=== PATIENT | female | born 1970 | race Caucasian/White ===

== ENCOUNTER 2017-10-01 08:03 | Day surgery (SDC) | payer BC ==
[~2017-10-01 08:03] MED LIST: LACTATED RINGER'S 1,000 ML IV*
[2017-10-01 09:02] LABS: ADD MAN DIFF? NO
[2017-10-01 09:07] LABS: BASOPHILS % 0.4 % (0.0-2.0); EOSINOPHILS # 0.2 10^3/ul (0.0-0.5); EOSINOPHILS % 1.5 % (0.0-7.0); HEMOGLOBIN 11.4 g/dl (12.0-16.0); LYMPHOCYTES # 2.1 10^3/ul (0.8-2.9); LYMPHOCYTES % 21.3 % (15.0-51.0); MEAN CORPUSCULAR HGB CONC 32.6 g/dl (32.0-37.0); MEAN PLATELET VOLUME 9.9 fl (7.4-10.4); MONOCYTE # 0.4 10^3/ul (0.3-0.9); MONOCYTES % 4.5 % (0.0-11.0); NEUTROPHIL # 7.1 10^3/ul (1.6-7.5); NEUTROPHILS % 71.9 % (39.0-77.0); PLATELET COUNT 306 10^3/UL (140-415); RED BLOOD COUNT 4.07 10^6/ul (4.20-5.40); RED CELL DISTRIBUTION WIDTH 12.8 % (11.5-14.5)
[2017-10-01 09:07] LABS: WHITE BLOOD COUNT 9.8 10^3/ul (4.8-10.8)
[2017-10-01] MEDS ORDERED: FENTAnyl 50 MCG/ML VIAL (10:17)
[2017-10-01] MEDS ORDERED: MIDAZOLAM 1 MG/ML 2 ML INJ (10:17)
[2017-10-01] MEDS ORDERED: CEFAZOLIN 1 GM INJ (10:17)
[2017-10-01] MEDS ORDERED: PROPOFOL 20 ML (10:17)
[2017-10-01] MEDS ORDERED: ONDANSETRON 4 MG INJ (10:33)
[2017-10-01] MEDS ORDERED: KETOROLAC 30 MG INJ (10:33)
[2017-10-01] MEDS ORDERED: METOCLOPRAMIDE 10 MG INJ (10:33)
[2017-10-01] MEDS ORDERED: HYDROmorphONE 1 MG/5 ML IV SYRINGE IV ×3 (11:00)
[2017-10-01] MEDS ORDERED: DIPHENHYDRAMINE 50 MG INJ IV (11:00)
[2017-10-01] MEDS ORDERED: OXYCODONE/ACETAMINOPHEN (5/325) TAB PO ×2 (11:00)
[2017-10-01] MEDS ORDERED: ONDANSETRON 4 MG INJ IV (11:00)
[2017-10-01] MEDS ORDERED: MEPERIDINE 25 MG INJ IV (11:00)
== END 2017-10-01 12:50 | disposition home or self-care (01) ==
LOC: SDS 08:03
DX: N84.0 Polyp of corpus uteri (principal); N93.8 Other specified abnormal uterine and vaginal bleeding; N72 Inflammatory disease of cervix uteri; E66.09 Other obesity due to excess calories; R94.31 Abnormal electrocardiogram [ECG] [EKG]
CPT/HCPCS: 58120; 84703; 85025; 86850; 86900; 86901; 88305; 93005